=== PATIENT | female | born 1955 | race Two or more races ===

== ENCOUNTER 2022-01-23 07:20 | Outpatient (CLI) | payer OTHER ==
[~2022-01-23 07:20] MED LIST: LEVSIN/SL0.125 MG SL
== END 2022-01-23 07:21 | disposition home or self-care (01) ==
LOC: NUCLEAR 07:20
PROVIDERS: ATTEND General Practice
DX: K86.1 Other chronic pancreatitis (principal)

== ENCOUNTER → 2025-02-08 | Day surgery (SDC) | payer OTHER | END | disposition home or self-care (01) | LOC: ADM 02-02 13:00 → AMB-ENDOS 06:17 | PROVIDERS: ATTEND Colon & Rectal Surgery | DX: K62.5 Hemorrhage of anus and rectum (principal); K57.30 Diverticulosis of large intestine without perforation or abscess without bleeding ==